=== PATIENT | male | born 1970 | race Caucasian/White ===

== ENCOUNTER → 2023-10-08 17:25 | Outpatient (REF) | payer OTHER, SELFPAY | LOC: MRI 3T 17:25 | PROVIDERS: ATTENDING PHYSICIAN Internal Medicine; FAMILY PHYSICIAN Family Medicine | DX: M54.59 Other low back pain (principal); M54.16 Radiculopathy, lumbar region | CPT/HCPCS: 70553; 72148; A9575 ==